=== PATIENT | female | born 1985 | race Caucasian/White ===

== ENCOUNTER 2018-10-18 11:05 | Emergency (ER) | payer SELFPAY ==
[~2018-10-18] VITALS: Ht 157.5 cm; Wt 86.2 kg
[2018-10-18 11:15] VITALS: BP 122/74
--- NOTE | 2018-10-18 11:45 | NUR ---
33f bib daughter with c/o irregular vaginal bleeding x 5 days, progressively getting worse. Patient sts she is changing her pad every 1 and 1/2 hours. Bright red/dark red blood bleeding. LMP 09/30/2018. Patient reports of intermittent dizziness. Patient with steady gait. Skin is warm/dry/color apprioriate for ethnicity. Patient reports of similiar irregular vaginal bleeding before. Never saw [facility] INVESTIGATOR for complaint. Patient reports of 3/10 "pressure" constant bl lower abd pain. Abd soft and tender to bl lower abd. NAD. Awaiting er md elena. All needs met at this time. Will continue to monitor.
[2018-10-18] MEDS ORDERED: KETOROLAC 30 MG/ML VIAL IM ONE (13:15)
[2018-10-18 13:48] LABS: BASOPHILS % (AUTO) 0.4 % (0.0-2.0); EOSINOPHILS # (AUTO) 0.1 K/uL (0-0.4); HEMATOCRIT 44.6 % (36-48); HEMOGLOBIN 14.5 g/dL (12.0-16.0); LYMPHOCYTES % (AUTO) 26.2 % (20.5-51.1); MEAN CORPUSCULAR HEMOGLOBIN 29 pg (27-31); MEAN CORPUSCULAR HGB CONC 33 g/dL (33-37); MEAN CORPUSCULAR VOLUME 89.7 fL (80-94); MONOCYTES # (AUTO) 0.6 K/uL (0.8-1.0); MONOCYTES % (AUTO) 4.8 % (1.7-9.3); NEUTROPHILS # (AUTO) 7.8 K/uL (1.8-7.7); NEUTROPHILS % (AUTO) 67.6 % (42.2-75.2); PLATELET COUNT (AUTO) 305 K/uL (140-450); RED BLOOD CELL COUNT(AUTO) 4.97 MIL/uL (4.20-5.40); RED CELL DISTRIBUTION WIDTH 13.2 % (11.6-13.7); WHITE BLOOD COUNT (AUTO) 11.6 K/uL (4.8-10.8)
[2018-10-18 15:34] VITALS: BP 117/75
== END 2018-10-18 15:37 | disposition home or self-care (01) ==
LOC: MED 11:05
DX: N93.8 Other specified abnormal uterine and vaginal bleeding (principal)
CPT/HCPCS: 36415; 76856; 81002; 81025; 85025; 86886; 86900; 86901; 93976; 96372; 99284; J1885; Q0092